=== PATIENT | male | born 1965 | race African-American/Black ===

== ENCOUNTER 2021-10-02 16:42 | Inpatient (IN) | payer OTHER ==
[2021-10-02 18:59] VITALS: BMI 22.1
[2021-10-02] MEDS ORDERED: ACETAMINOPHEN 325 MG TABLET (FP) PO PRN ×2 (20:43)
[2021-10-02] MEDS ORDERED: MAGNESIUM HYDROX 2400MG/30ML ORAL SUSPENSION 30 ML CUP PO PRN (20:43)
[2021-10-02] MEDS ORDERED: MENTHOL/PHENOL 1 EACH UD MM PRN (20:43)
[2021-10-02] MEDS ORDERED: ONDANSETRON *ODT* 4 MG TABLET SL PRN (20:43)
[2021-10-02] MEDS ORDERED: IBUPROFEN 400 MG TABLET (FP) PO PRN (20:43)
[2021-10-02] MEDS ORDERED: MAG HYDROX/AL HYDROX/SIMETH 30 ML UNIT-DOSE CUP PO PRN (20:43)
[2021-10-02] MEDS ORDERED: BISMUTH SUBSALICYLATE 524 MG/30 ML PO PRN (20:43)
[2021-10-02] MEDS ORDERED: MAGNESIUM CITRATE 300 ML BOTTLE PO PRN (20:43)
[2021-10-03] MEDS: THIAMINE HCL 100 MG TABLET (FP) PO SCH ×2 (04:48→23:46)
[2021-10-03] MEDS: MELATONIN 5 MG TABLETS PO SCH ×2 (04:48→23:46)
[2021-10-03] MEDS ORDERED: LORazepam 1 MG TABLET PO PRN (09:24)
[2021-10-03] MEDS: LORazepam 1 MG TABLET PO SCH ×3 (10:19→18:20)
[2021-10-03] MEDS: PRENATAL VITAMINS W/ FOLIC ACID TABLET (FP) PO SCH (10:45)
[2021-10-03] MEDS: NICOTINE 14 MG/24 HOURS TOPICAL PATCH TD SCH (10:45)
[2021-10-04] MEDS: LORazepam 0.5 MG TABLET PO SCH ×3 (06:01→22:22)
[2021-10-04] MEDS: PRENATAL VITAMINS W/ FOLIC ACID TABLET (FP) PO SCH (10:23)
[2021-10-04] MEDS: LORazepam 0.5 MG TABLET PO PRN (10:23)
[2021-10-04] MEDS: METHOCARBAMOL 500 MG TABLET PO PRN ×2 (10:23→22:21)
[2021-10-04] MEDS: NICOTINE 14 MG/24 HOURS TOPICAL PATCH TD SCH (10:24)
[2021-10-04] MEDS: THIAMINE HCL 100 MG TABLET (FP) PO SCH (22:21)
[2021-10-04] MEDS: MELATONIN 5 MG TABLETS PO SCH (22:21)
[2021-10-05] MEDS: LORazepam 0.5 MG TABLET PO SCH ×2 (07:09→19:05)
[2021-10-05] MEDS: NICOTINE 14 MG/24 HOURS TOPICAL PATCH TD SCH (10:36)
[2021-10-05] MEDS: PRENATAL VITAMINS W/ FOLIC ACID TABLET (FP) PO SCH (10:36)
[2021-10-05] MEDS: METHOCARBAMOL 500 MG TABLET PO PRN (10:39)
[2021-10-05] MEDS: LORazepam 0.5 MG TABLET PO PRN (10:39)
[2021-10-05] MEDS: MELATONIN 5 MG TABLETS PO SCH (22:12)
[2021-10-05] MEDS: THIAMINE HCL 100 MG TABLET (FP) PO SCH (22:12)
[2021-10-06] MEDS ORDERED: LORazepam 0.5 MG TABLET PO ONE (05:00)
[2021-10-06 07:26] VITALS: BP 137/81; PULSE 75; TEMP 97.1
[2021-10-06] MEDS: NICOTINE 14 MG/24 HOURS TOPICAL PATCH TD SCH (11:09)
[2021-10-06] MEDS: PRENATAL VITAMINS W/ FOLIC ACID TABLET (FP) PO SCH (11:09)
== END 2021-10-06 11:22 | disposition other institution (70) | DRG 774 ==
LOC: YASAS 16:42 → UNDOADMIN 10-03 03:25 → Y6N 10-03 03:25
PROVIDERS: ADMIT Allergy & Immunology; ATTEND Allergy & Immunology
PROC: HZ2ZZZZ Detoxification Services for Substance Abuse Treatment (ICD-10-PCS; principal; 2021-10-03)
DX: F10.230 Alcohol dependence with withdrawal, uncomplicated (principal); F14.20 Cocaine dependence, uncomplicated; F12.20 Cannabis dependence, uncomplicated; F17.213 Nicotine dependence, cigarettes, with withdrawal; R07.89 Other chest pain; M79.606 Pain in leg, unspecified; Z86.59 Personal history of other mental and behavioral disorders; Z86.19 Personal history of other infectious and parasitic diseases
CPT/HCPCS: 36415; 71046-TC-FY; 86593; 86780; 93005; 93010; C9803; U0003; U0005

== ENCOUNTER 2021-10-03 00:39 | Emergency (ER) | payer OTHER ==
[2021-10-03 01:06] VITALS: BP 126/81; PULSE 76; TEMP 98.3; BMI 23.7
[2021-10-03 02:21] LABS: BASO % 1.2 % (0-2.0); EOS % 3.4 % (0-4.5); HEMATOCRIT 37.4 % (35.4-49); HEMOGLOBIN 12.6 GM/dL (11.7-16.9); LYMPH % 40.4 % (8-40); MCH 26.7 pg (25.7-33.7); MCHC 33.5 g/dl (32.0-35.9); MEAN CELL VOLUME 79.7 fl (80-96); MEAN PLT VOLUME 6.8 fl (7.5-11.1); MONO % 14.5 % (3.8-10.2); NEUT % 40.5 % (42.8-82.8); PLATELET COUNT 258 10^3/uL (134-434); RDW 14.4 % (11.9-15.9); WHITE BLOOD COUNT 3.6 K/mm3 (4.0-10.0)
[2021-10-03 02:40] LABS: CHLORIDE 107 mmol/L (98-107); SODIUM 142 mmol/L (136-145)
[2021-10-03 02:42] LABS: CALCIUM 8.3 mg/dL (8.5-10.1)
[2021-10-03 02:43] LABS: ALBUMIN 2.6 g/dl (3.4-5.0); ANION GAP 6 MMOL/L (8-16); BLOOD UREA NITROGEN 18.4 mg/dL (7-18); CO2 28 mmol/L (21-32); GLUCOSE,RANDOM 96 mg/dL (74-106)
[2021-10-03 02:46] LABS: CREATININE 1.5 mg/dL (0.55-1.3); SGOT/AST 40 U/L (15-37); SGPT/ALT 54 U/L (13-61)
[2021-10-03 02:48] LABS: BILIRUBIN,TOTAL 0.3 mg/dL (0.2-1)
[2021-10-03 02:49] LABS: ALK PHOS 71 U/L (45-117)
== END 2021-10-03 03:08 | disposition home or self-care (01) ==
LOC: JER 00:39
DX: R07.9 Chest pain, unspecified (principal)
CPT/HCPCS: 36415; 80053; 82550; 82553; 84484; 85025; 93971-TC; 99285-25

== ENCOUNTER 2021-10-06 11:11 | Inpatient (IN) | payer OTHER ==
[2021-10-06] MEDS ORDERED: MAG HYDROX/AL HYDROX/SIMETH 30 ML UNIT-DOSE CUP PO PRN (12:08)
[2021-10-06] MEDS ORDERED: NICOTINE 10 MG CARTRIDGE (INHALER) IH PRN (12:08)
[2021-10-06] MEDS ORDERED: P-EPHED 60MG/TRIPROLIDI 2.5MG TABLET PO PRN (12:08)
[2021-10-06] MEDS ORDERED: MAGNESIUM CITRATE 300 ML BOTTLE PO PRN (12:08)
[2021-10-06] MEDS ORDERED: MENTHOL/PHENOL 1 EACH UD MM PRN (12:08)
[2021-10-06] MEDS ORDERED: guaiFENesin 200 MG/10 ML 10 ML UNIT-DOSE CUPS PO PRN (12:08)
[2021-10-06] MEDS ORDERED: MAGNESIUM HYDROX 2400MG/30ML ORAL SUSPENSION 30 ML CUP PO PRN (12:08)
[2021-10-06] MEDS ORDERED: ACETAMINOPHEN 325 MG TABLET (FP) PO PRN (12:08)
[2021-10-06] MEDS ORDERED: LOPERAMIDE HCL 2 MG CAPSULE PO PRN (12:08)
[2021-10-06] MEDS: hydrOXYzine PAMOATE 25 MG CAPSULE (FP) PO SCH ×3 (13:12→21:09)
[2021-10-06] MEDS: METHOCARBAMOL 500 MG TABLET PO SCH ×3 (13:12→21:09)
[2021-10-06] MEDS: THIAMINE HCL 100 MG TABLET (FP) PO SCH (21:09)
[2021-10-06] MEDS: MELATONIN 5 MG TABLETS PO SCH (21:09)
[2021-10-07] MEDS: IBUPROFEN 400 MG TABLET (FP) PO PRN ×2 (02:42→11:40)
[2021-10-07] MEDS: hydrOXYzine PAMOATE 25 MG CAPSULE (FP) PO SCH ×5 (06:28→21:16)
[2021-10-07] MEDS: NICOTINE 7 MG/24 HOURS TOPICAL PATCH TD SCH (10:34)
[2021-10-07] MEDS: METHOCARBAMOL 500 MG TABLET PO SCH ×4 (10:34→21:16)
[2021-10-07] MEDS: NICOTINE 14 MG/24 HOURS TOPICAL PATCH TD SCH (10:34)
[2021-10-07] MEDS: PRENATAL VITAMINS W/ FOLIC ACID TABLET (FP) PO SCH (10:34)
[2021-10-07] MEDS: LIDOCAINE 5% TOPICAL PATCH TP SCH (11:39)
[2021-10-07] MEDS: MELATONIN 5 MG TABLETS PO SCH (21:16)
[2021-10-07] MEDS: LIDOCAINE PATCH REMOVAL MC SCH (21:16)
[2021-10-07] MEDS: THIAMINE HCL 100 MG TABLET (FP) PO SCH (21:16)
[2021-10-08] MEDS: hydrOXYzine PAMOATE 25 MG CAPSULE (FP) PO SCH ×5 (06:52→21:23)
[2021-10-08] MEDS: PRENATAL VITAMINS W/ FOLIC ACID TABLET (FP) PO SCH (10:10)
[2021-10-08] MEDS: METHOCARBAMOL 500 MG TABLET PO SCH ×4 (10:10→21:23)
[2021-10-08] MEDS: IBUPROFEN 400 MG TABLET (FP) PO PRN (10:11)
[2021-10-08] MEDS: NICOTINE 7 MG/24 HOURS TOPICAL PATCH TD SCH (10:16)
[2021-10-08] MEDS: NICOTINE 14 MG/24 HOURS TOPICAL PATCH TD SCH (10:17)
[2021-10-08] MEDS: BENZOCAINE 20 % GEL TUBE MM PRN (13:15)
[2021-10-08] MEDS: LIDOCAINE 5% TOPICAL PATCH TP SCH (13:15)
[2021-10-08] MEDS: THIAMINE HCL 100 MG TABLET (FP) PO SCH (21:23)
[2021-10-08] MEDS: MELATONIN 5 MG TABLETS PO SCH (21:23)
[2021-10-08] MEDS: LIDOCAINE PATCH REMOVAL MC SCH (21:24)
[2021-10-09] MEDS: hydrOXYzine PAMOATE 25 MG CAPSULE (FP) PO SCH ×5 (06:53→21:23)
[2021-10-09] MEDS: NICOTINE 14 MG/24 HOURS TOPICAL PATCH TD SCH (09:47)
[2021-10-09] MEDS: METHOCARBAMOL 500 MG TABLET PO SCH ×4 (09:47→21:22)
[2021-10-09] MEDS: PRENATAL VITAMINS W/ FOLIC ACID TABLET (FP) PO SCH (09:47)
[2021-10-09] MEDS: NICOTINE 7 MG/24 HOURS TOPICAL PATCH TD SCH (09:47)
[2021-10-09] MEDS: LIDOCAINE 5% TOPICAL PATCH TP SCH (14:25)
[2021-10-09] MEDS: BENZOCAINE 20 % GEL TUBE MM PRN (14:26)
[2021-10-09] MEDS: THIAMINE HCL 100 MG TABLET (FP) PO SCH (21:22)
[2021-10-09] MEDS: MELATONIN 5 MG TABLETS PO SCH (21:22)
[2021-10-09] MEDS: LIDOCAINE PATCH REMOVAL MC SCH (21:23)
[2021-10-10] MEDS: hydrOXYzine PAMOATE 25 MG CAPSULE (FP) PO SCH ×5 (06:22→21:40)
[2021-10-10] MEDS: METHOCARBAMOL 500 MG TABLET PO SCH ×4 (10:40→21:40)
[2021-10-10] MEDS: NICOTINE 7 MG/24 HOURS TOPICAL PATCH TD SCH (10:40)
[2021-10-10] MEDS: NICOTINE 14 MG/24 HOURS TOPICAL PATCH TD SCH (10:40)
[2021-10-10] MEDS: PRENATAL VITAMINS W/ FOLIC ACID TABLET (FP) PO SCH (10:40)
[2021-10-10] MEDS: LIDOCAINE 5% TOPICAL PATCH TP SCH (10:41)
[2021-10-10] MEDS: MELATONIN 5 MG TABLETS PO SCH (21:40)
[2021-10-10] MEDS: THIAMINE HCL 100 MG TABLET (FP) PO SCH (21:40)
[2021-10-10] MEDS: LIDOCAINE PATCH REMOVAL MC SCH (21:41)
[2021-10-11] MEDS: hydrOXYzine PAMOATE 25 MG CAPSULE (FP) PO SCH ×5 (06:23→21:11)
[2021-10-11] MEDS: LIDOCAINE 5% TOPICAL PATCH TP SCH (10:19)
[2021-10-11] MEDS: NICOTINE 7 MG/24 HOURS TOPICAL PATCH TD SCH (10:20)
[2021-10-11] MEDS: NICOTINE 14 MG/24 HOURS TOPICAL PATCH TD SCH (10:20)
[2021-10-11] MEDS: PRENATAL VITAMINS W/ FOLIC ACID TABLET (FP) PO SCH (10:21)
[2021-10-11] MEDS: METHOCARBAMOL 500 MG TABLET PO SCH ×4 (10:21→21:11)
[2021-10-11] MEDS: THIAMINE HCL 100 MG TABLET (FP) PO SCH (21:11)
[2021-10-11] MEDS: LIDOCAINE PATCH REMOVAL MC SCH (21:11)
[2021-10-11] MEDS: MELATONIN 5 MG TABLETS PO SCH (21:11)
[2021-10-12] MEDS: hydrOXYzine PAMOATE 25 MG CAPSULE (FP) PO SCH ×5 (06:10→22:19)
[2021-10-12] MEDS: LIDOCAINE 5% TOPICAL PATCH TP SCH (10:01)
[2021-10-12] MEDS: PRENATAL VITAMINS W/ FOLIC ACID TABLET (FP) PO SCH (10:01)
[2021-10-12] MEDS: METHOCARBAMOL 500 MG TABLET PO SCH ×4 (10:02→22:19)
[2021-10-12] MEDS: NICOTINE 7 MG/24 HOURS TOPICAL PATCH TD SCH (10:03)
[2021-10-12] MEDS: NICOTINE 14 MG/24 HOURS TOPICAL PATCH TD SCH (10:03)
[2021-10-12] MEDS: MELATONIN 5 MG TABLETS PO SCH (22:19)
[2021-10-12] MEDS: THIAMINE HCL 100 MG TABLET (FP) PO SCH (22:20)
[2021-10-12] MEDS: LIDOCAINE PATCH REMOVAL MC SCH (22:20)
[2021-10-13] MEDS: IBUPROFEN 400 MG TABLET (FP) PO PRN (06:07)
[2021-10-13] MEDS: hydrOXYzine PAMOATE 25 MG CAPSULE (FP) PO SCH (06:07)
[2021-10-13] MEDS ORDERED: hydrOXYzine PAMOATE 25 MG CAPSULE (FP) PO PRN (08:39)
[2021-10-13] MEDS: NICOTINE 14 MG/24 HOURS TOPICAL PATCH TD SCH (10:05)
[2021-10-13] MEDS: LIDOCAINE 5% TOPICAL PATCH TP SCH (10:05)
[2021-10-13] MEDS: PRENATAL VITAMINS W/ FOLIC ACID TABLET (FP) PO SCH (10:05)
[2021-10-13] MEDS: METHOCARBAMOL 500 MG TABLET PO SCH ×4 (10:05→21:18)
[2021-10-13] MEDS: NICOTINE 7 MG/24 HOURS TOPICAL PATCH TD SCH (10:05)
[2021-10-13] MEDS: AMOXICILLIN 500 MG CAPSULE (FP) PO SCH ×2 (11:14→21:17)
[2021-10-13] MEDS: LIDOCAINE PATCH REMOVAL MC SCH (21:17)
[2021-10-13] MEDS: THIAMINE HCL 100 MG TABLET (FP) PO SCH (21:18)
[2021-10-13] MEDS: MELATONIN 5 MG TABLETS PO SCH (21:18)
[2021-10-14] MEDS: IBUPROFEN 400 MG TABLET (FP) PO PRN (06:17)
[2021-10-14] MEDS: NICOTINE 7 MG/24 HOURS TOPICAL PATCH TD SCH (09:54)
[2021-10-14] MEDS: PRENATAL VITAMINS W/ FOLIC ACID TABLET (FP) PO SCH (09:55)
[2021-10-14] MEDS: AMOXICILLIN 500 MG CAPSULE (FP) PO SCH ×2 (09:55→21:06)
[2021-10-14] MEDS: METHOCARBAMOL 500 MG TABLET PO SCH ×4 (09:55→21:06)
[2021-10-14] MEDS: NICOTINE 14 MG/24 HOURS TOPICAL PATCH TD SCH (09:55)
[2021-10-14] MEDS: LIDOCAINE 5% TOPICAL PATCH TP SCH (10:04)
[2021-10-14] MEDS ORDERED: IBUPROFEN 600 MG TABLET (FP) PO PRN (11:24)
[2021-10-14] MEDS: THIAMINE HCL 100 MG TABLET (FP) PO SCH (21:06)
[2021-10-14] MEDS: MELATONIN 5 MG TABLETS PO SCH (21:06)
[2021-10-14] MEDS: LIDOCAINE PATCH REMOVAL MC SCH (21:07)
[2021-10-15] MEDS: LIDOCAINE 5% TOPICAL PATCH TP SCH (09:59)
[2021-10-15] MEDS: PRENATAL VITAMINS W/ FOLIC ACID TABLET (FP) PO SCH (09:59)
[2021-10-15] MEDS: METHOCARBAMOL 500 MG TABLET PO SCH ×4 (10:00→21:24)
[2021-10-15] MEDS: AMOXICILLIN 500 MG CAPSULE (FP) PO SCH ×2 (12:29→21:23)
[2021-10-15] MEDS: THIAMINE HCL 100 MG TABLET (FP) PO SCH (21:22)
[2021-10-15] MEDS: MELATONIN 5 MG TABLETS PO SCH (21:24)
[2021-10-15] MEDS: LIDOCAINE PATCH REMOVAL MC SCH (21:24)
[2021-10-16] MEDS: AMOXICILLIN 500 MG CAPSULE (FP) PO SCH ×2 (09:57→21:44)
[2021-10-16] MEDS: PRENATAL VITAMINS W/ FOLIC ACID TABLET (FP) PO SCH (09:58)
[2021-10-16] MEDS: METHOCARBAMOL 500 MG TABLET PO SCH ×4 (09:58→21:45)
[2021-10-16] MEDS: LIDOCAINE 5% TOPICAL PATCH TP SCH (09:58)
[2021-10-16] MEDS: LIDOCAINE PATCH REMOVAL MC SCH (21:44)
[2021-10-16] MEDS: THIAMINE HCL 100 MG TABLET (FP) PO SCH (21:45)
[2021-10-16] MEDS: MELATONIN 5 MG TABLETS PO SCH (21:45)
[2021-10-17] MEDS: PRENATAL VITAMINS W/ FOLIC ACID TABLET (FP) PO SCH (10:37)
[2021-10-17] MEDS: METHOCARBAMOL 500 MG TABLET PO SCH ×4 (10:37→21:20)
[2021-10-17] MEDS: AMOXICILLIN 500 MG CAPSULE (FP) PO SCH ×2 (10:37→21:20)
[2021-10-17] MEDS: LIDOCAINE 5% TOPICAL PATCH TP SCH (10:38)
[2021-10-17] MEDS: THIAMINE HCL 100 MG TABLET (FP) PO SCH (21:20)
[2021-10-17] MEDS: MELATONIN 5 MG TABLETS PO SCH (21:20)
[2021-10-17] MEDS: LIDOCAINE PATCH REMOVAL MC SCH (21:21)
[2021-10-18] MEDS: METHOCARBAMOL 500 MG TABLET PO SCH ×4 (09:40→21:39)
[2021-10-18] MEDS: AMOXICILLIN 500 MG CAPSULE (FP) PO SCH ×2 (09:40→21:38)
[2021-10-18] MEDS: PRENATAL VITAMINS W/ FOLIC ACID TABLET (FP) PO SCH (09:40)
[2021-10-18] MEDS: LIDOCAINE 5% TOPICAL PATCH TP SCH (09:40)
[2021-10-18] MEDS: THIAMINE HCL 100 MG TABLET (FP) PO SCH (21:38)
[2021-10-18] MEDS: LIDOCAINE PATCH REMOVAL MC SCH (21:38)
[2021-10-18] MEDS: MELATONIN 5 MG TABLETS PO SCH (21:38)
[2021-10-19] MEDS: METHOCARBAMOL 500 MG TABLET PO SCH ×4 (10:36→21:09)
[2021-10-19] MEDS: AMOXICILLIN 500 MG CAPSULE (FP) PO SCH ×2 (10:36→21:09)
[2021-10-19] MEDS: PRENATAL VITAMINS W/ FOLIC ACID TABLET (FP) PO SCH (10:36)
[2021-10-19] MEDS: LIDOCAINE 5% TOPICAL PATCH TP SCH (10:38)
[2021-10-19] MEDS: LIDOCAINE PATCH REMOVAL MC SCH (21:09)
[2021-10-19] MEDS: THIAMINE HCL 100 MG TABLET (FP) PO SCH (21:09)
[2021-10-19] MEDS: MELATONIN 5 MG TABLETS PO SCH (21:09)
[2021-10-20 06:54] VITALS: BP 135/83; PULSE 82; TEMP 98.2
[2021-10-20] MEDS: LIDOCAINE 5% TOPICAL PATCH TP SCH (09:07)
[2021-10-20] MEDS: PRENATAL VITAMINS W/ FOLIC ACID TABLET (FP) PO SCH (09:08)
[2021-10-20] MEDS: METHOCARBAMOL 500 MG TABLET PO SCH (09:08)
== END 2021-10-20 09:43 | disposition home or self-care (01) | DRG 772 ==
LOC: YASAS 11:11 → Y3E 11:12 → Y3W 11:31
PROVIDERS: ADMIT Allergy & Immunology; ATTEND Allergy & Immunology
PROC: HZ42ZZZ Group Counseling for Substance Abuse Treatment, Cognitive-Behavioral (ICD-10-PCS; principal; 2021-10-06)
DX: F10.20 Alcohol dependence, uncomplicated (principal); F14.20 Cocaine dependence, uncomplicated; F12.20 Cannabis dependence, uncomplicated; K02.9 Dental caries, unspecified; K08.9 Disorder of teeth and supporting structures, unspecified; K06.1 Gingival enlargement; K06.8 Other specified disorders of gingiva and edentulous alveolar ridge; R10.9 Unspecified abdominal pain
CPT/HCPCS: C9803; U0003; U0005

== ENCOUNTER 2023-11-07 17:00 | Inpatient (IN) | payer OTHER ==
[2023-11-07 19:21] VITALS: BMI 23.1
[2023-11-07] MEDS ORDERED: MAGNESIUM HYDROX 2400MG/30ML ORAL SUSPENSION 30 ML CUP PO PRN (21:21)
[2023-11-07] MEDS ORDERED: COLLOIDAL OATMEAL 1 BAR EACH TP PRN (21:21)
[2023-11-07] MEDS ORDERED: NALOXONE HCL 0.4 MG/ML VIAL IM PRN (21:21)
[2023-11-07] MEDS ORDERED: MAG HYDROX/AL HYDROX/SIMETH 30 ML UNIT-DOSE CUP PO PRN (21:21)
[2023-11-07] MEDS ORDERED: ACETAMINOPHEN 325 MG TABLET (FP) PO PRN (21:21)
[2023-11-07] MEDS ORDERED: BENZOCAINE/MENTHOL (CHLORASEPTIC ) LOZENGE MM PRN (21:21)
[2023-11-07] MEDS ORDERED: POLYETHYLENE GLYCOL (HEALTHYLAX) 3350 17 GM PACKET PO PRN (21:21)
[2023-11-07] MEDS ORDERED: guaiFENesin 600 MG TABLET.ER (FP) PO PRN (21:21)
[2023-11-07] MEDS ORDERED: NALOXONE HCL (KLOXXADO) 8 MG SPRAY NS PRN (21:21)
[2023-11-07] MEDS ORDERED: BENZONATATE 200 MG CAPSULE PO PRN (21:21)
[2023-11-07] MEDS ORDERED: IBUPROFEN 400 MG TABLET (FP) PO PRN (21:21)
[2023-11-07] MEDS ORDERED: hydrOXYzine PAMOATE 25 MG CAPSULE (FP) PO PRN (21:21)
[2023-11-08] MEDS: MELATONIN 5 MG TABLETS PO SCH ×2 (02:31→21:10)
[2023-11-08] MEDS: THIAMINE HCL 100 MG TABLET (FP) PO SCH ×2 (02:31→21:10)
[2023-11-08] MEDS ORDERED: TUBERCULIN PPD 5 TU/0.1ML VIAL ID ONE (08:18)
[2023-11-08] MEDS: PRENATAL VITAMINS W/ FOLIC ACID TABLET (FP) PO SCH (09:11)
[2023-11-08 11:40] LABS: HEMATOCRIT 42.7 % (35.4-49); HEMOGLOBIN 13.8 GM/dL (11.7-16.9); MCH 27.3 pg (25.7-33.7); MCHC 32.2 g/dl (32.0-35.9); MEAN CELL VOLUME 84.9 fl (80-96); MEAN PLT VOLUME 8.3 fl (7.5-11.1); PLATELET COUNT 258 10^3/uL (134-434); RBC 5.03 M/mm3 (4.00-5.60); RDW 16.7 % (11.9-15.9); WHITE BLOOD COUNT 5.9 K/mm3 (4.0-10.0)
[2023-11-08 11:52] LABS: CHLORIDE 111 mmol/L (98-107); POTASSIUM 4.3 mmol/L (3.5-5.1); SODIUM 143 mmol/L (136-145)
[2023-11-08 11:54] LABS: ALBUMIN 3.2 g/dl (3.4-5.0); ANION GAP 5 mmol/L (4-13); CALCIUM 8.7 mg/dL (8.5-10.1); CO2 27 mmol/L (21-32); GLUCOSE,RANDOM 84 mg/dL (74-106)
[2023-11-08 11:55] LABS: BLOOD UREA NITROGEN 15.6 mg/dL (7-18)
[2023-11-08 11:57] LABS: CREATININE 1.2 mg/dL (0.55-1.3); SGOT/AST 16 U/L (15-37)
[2023-11-08 11:58] LABS: SGPT/ALT 18 U/L (13-61)
[2023-11-08 11:59] LABS: BILIRUBIN,TOTAL 0.2 mg/dL (0.2-1); TOT PROT 7.1 g/dl (6.4-8.2)
[2023-11-08 12:00] LABS: ALK PHOS 68 U/L (45-117)
[2023-11-08 13:19] LABS: SYPHILIS W/ RPR CONF REACTIVE (NONREACTIVE)
[2023-11-08] MEDS: IBUPROFEN 600 MG TABLET (FP) PO PRN (16:29)
[2023-11-08 16:49] LABS: PH,URINE 6.5 (5.0-8.0); URINE APPEARANCE CLEAR; URINE BILIRUBIN NEGATIVE (NEGATIVE); URINE COLOR YELLOW; URINE GLUCOSE (UA) NEGATIVE (NEGATIVE); URINE KETONE NEGATIVE (NEGATIVE); URINE LEUK ESTERASE NEGATIVE (NEGATIVE); URINE NITRITE NEGATIVE (NEGATIVE); URINE PROTEIN NEGATIVE (NEGATIVE); URINE UROBILINOGEN 0.2 mg/dL (0.2-1.0)
[2023-11-09] MEDS: PRENATAL VITAMINS W/ FOLIC ACID TABLET (FP) PO SCH (10:25)
[2023-11-09] MEDS: MELATONIN 5 MG TABLETS PO SCH (21:22)
[2023-11-09] MEDS: THIAMINE HCL 100 MG TABLET (FP) PO SCH (21:22)
[2023-11-10] MEDS: PRENATAL VITAMINS W/ FOLIC ACID TABLET (FP) PO SCH (10:10)
[2023-11-10] MEDS: LOPERAMIDE HCL 2 MG CAPSULE PO PRN (20:00)
[2023-11-10] MEDS: THIAMINE HCL 100 MG TABLET (FP) PO SCH (21:19)
[2023-11-10] MEDS: IBUPROFEN 600 MG TABLET (FP) PO PRN (21:19)
[2023-11-10] MEDS: MELATONIN 5 MG TABLETS PO SCH (21:19)
[2023-11-11] MEDS: LOPERAMIDE HCL 2 MG CAPSULE PO PRN ×2 (06:20→21:48)
[2023-11-11] MEDS: PRENATAL VITAMINS W/ FOLIC ACID TABLET (FP) PO SCH (09:46)
[2023-11-11] MEDS: MELATONIN 5 MG TABLETS PO SCH (21:46)
[2023-11-11] MEDS: THIAMINE HCL 100 MG TABLET (FP) PO SCH (21:47)
[2023-11-11] MEDS: HYDROCORTISONE ACETATE 25 MG/SUPP.RECT RC SCH (22:08)
[2023-11-12] MEDS: PRENATAL VITAMINS W/ FOLIC ACID TABLET (FP) PO SCH (10:21)
[2023-11-12] MEDS ORDERED: WITCH HAZEL 50% (TUCKS) 40 PAD/JAR PAD TP PRN (11:27)
[2023-11-12] MEDS: NALTREXONE HCL 50 MG TABLET PO SCH (12:26)
[2023-11-12] MEDS: MELATONIN 5 MG TABLETS PO SCH (21:14)
[2023-11-12] MEDS: HYDROCORTISONE ACETATE 25 MG/SUPP.RECT RC SCH (21:14)
[2023-11-12] MEDS: THIAMINE HCL 100 MG TABLET (FP) PO SCH (21:14)
[2023-11-13] MEDS: NALTREXONE HCL 50 MG TABLET PO SCH (10:00)
[2023-11-13] MEDS: PRENATAL VITAMINS W/ FOLIC ACID TABLET (FP) PO SCH (10:00)
[2023-11-13 11:47] LABS: INR 0.96 (0.83-1.09); PROTHROMBIN TIME (PATIENT) 11.1 SEC (9.7-13.0)
[2023-11-13] MEDS: THIAMINE HCL 100 MG TABLET (FP) PO SCH (21:07)
[2023-11-13] MEDS: MELATONIN 5 MG TABLETS PO SCH (21:07)
[2023-11-13] MEDS: HYDROCORTISONE ACETATE 25 MG/SUPP.RECT RC SCH (21:08)
[2023-11-14 07:05] VITALS: TEMP 97.5
[2023-11-14] MEDS: PRENATAL VITAMINS W/ FOLIC ACID TABLET (FP) PO SCH (10:26)
[2023-11-14] MEDS: NALTREXONE HCL 50 MG TABLET PO SCH (10:26)
[2023-11-14] MEDS: MELATONIN 5 MG TABLETS PO SCH (21:13)
[2023-11-14] MEDS: THIAMINE HCL 100 MG TABLET (FP) PO SCH (21:13)
[2023-11-14] MEDS: HYDROCORTISONE ACETATE 25 MG/SUPP.RECT RC SCH (21:13)
[2023-11-15] MEDS ORDERED: NALTREXONE MICROSPHERES (VIVITROL) 380 MG DISP.SYRIN IM ONE ×2 (06:00→09:00)
[2023-11-15 06:41] VITALS: BP 132/85; PULSE 67; RESP 16
[2023-11-15] MEDS: PRENATAL VITAMINS W/ FOLIC ACID TABLET (FP) PO SCH (09:24)
[2023-11-15] MEDS ORDERED: NALTREXONE HCL 50 MG TABLET PO SCH (10:00)
== END 2023-11-15 09:30 | disposition home or self-care (01) | DRG 772 ==
LOC: YASAS 17:00 → Y3E 11-08 01:55
PROVIDERS: ADMIT Allergy & Immunology; ATTEND Psychiatry & Neurology Pain Medicine
PROC: HZ42ZZZ Group Counseling for Substance Abuse Treatment, Cognitive-Behavioral (ICD-10-PCS; principal; 2023-11-08)
DX: F10.20 Alcohol dependence, uncomplicated (principal); F14.20 Cocaine dependence, uncomplicated; F12.20 Cannabis dependence, uncomplicated; F17.210 Nicotine dependence, cigarettes, uncomplicated; K64.9 Unspecified hemorrhoids; K62.89 Other specified diseases of anus and rectum; Z86.19 Personal history of other infectious and parasitic diseases; Z86.11 Personal history of tuberculosis; Z86.718 Personal history of other venous thrombosis and embolism
CPT/HCPCS: 36415; 71045-TC-FY; 80053; 80307; 81003; 82140; 82652; 83735; 85027; 85610; 86593; 86780; 86803; 87635